=== PATIENT | male | born 1990 | race Caucasian/White ===

== ENCOUNTER 2016-08-12 07:10 | Emergency (ER) | payer BC ==
[2016-08-12] MEDS ORDERED: HYDROmorphone 1 MG INJECTION IV ONE (07:18)
[2016-08-12] MEDS ORDERED: ONDANSETRON HCL 4 MG/2 ML VIAL IV ONE (07:18)
[2016-08-12] MEDS ORDERED: NS 1,000 ML IV ONE (07:18)
[2016-08-12] MEDS ORDERED: ONDANSETRON HCL 4 MG/2 ML VIAL IV PRN (07:18)
[2016-08-12] MEDS ORDERED: HYDROmorphone 1 MG INJECTION IV PRN (07:18)
--- NOTE | 2016-08-12 07:21 | EDPRACDOC ---
- General Information Stated Complaint: SCROTAL PAIN, VOMITING Time Seen by Provider: 08/12/16 07:17 Home Medications: Home Medications Ketorolac Tromethamine 10 mg PO Q6H PRN #20 tab 08/12/16 Allergies/Adverse Reactions: Allergies Allergy/AdvReac Type Severity Reaction Status Date / Time No Known Allergies Allergy Verified 07/06/15 09:55 - History of Present Illness HPI: RIGHT TESTIC PAIN SINCE 0300; NO OTHER SXS. Pain Quality: Reports: Aching ED Past Medical History - History Reviewed Yes Nurses notes reviewed and agree except as marked - Patient Medical History Cardiac History: Reports: Heart Attack Respiratory History: Reports: Asthma - Family Medical History Reports: Cancer (GRANDMOTHER- LUNG). Denies: Hypertension, Diabetes, Stroke, Cardiac Disorders - Social Medical History Smoking Status: Heavy tobacco smoker (5 or more cigarettes/day or daily pipe/ cigar) EDM Review of Systems - Review of Systems ROS Negative Except as Marked: Yes All systems reviewed and were negative except as marked - Physical Exam Constitutional: Alert (Awake), No apparent distress Oriented to: Time, Person, Place Last recorded Vital Signs: Oxygen Pulse Oxygen Saturation O2 Device Oxygen Flow Rate Fraction of Inspired Oxygen ( FIO2) - HEENT Head: Normal ( normocephalic) Eye Exam: Normal (PERRL, EOMI, Sclera white) Oropharynx: Normal (Pharynx:Moist without exudate,Gums-no swelling) ENT EAC: Normal TMJ: Normal Nose: No Symptoms Reported (septum midline) Neck: Normal (FROM, trachea at midline) - Respiratory/Cardiovascular Respiratory: Normal - CTA (BBS clear to auscultation without adventitious sounds ) Cardiovascular: Normal (RRR without murmur, gallop or rub) - GI Auscultation: Normal (NABS) Palpation: Normal (Soft,No rebound or guarding, non distended) Tenderness: Non tender Aparicio's Sign: Negative - Male Genitalia: Bilateral: Normal Scrotum: Bilateral: Tender - Musculoskeletal Back: Normal (Non-Tender) Extremities: Normal (Normal tone, Pulses 2+ No cyanosis or edema, FROM) - Integumentary Skin: Normal, Warm, Dry Lymphatics: Normal (no adenopathy) - Neurologic Memory Impaired: Normal Motor Function: Normal (Normal tone, Pulses 2+ No cyanosis or edema, FROM) Cranial Nerve: Normal (CN II-X11 intact sensation, strength 5/5) Cerebellar: Normal Mood Description: Normal Perception: Normal - Results 08/12/16 07:40 08/12/16 07:40 Decision Time to Discharge: 10:23 - Departure Yes I personally saw and evaluated the patient. Disposition: Home Condition: Good Final Diagnosis: SCROTAL PAIN, URETEROLITHIASIS Instructions: Pelvic Pain in Men (ED) Education/Counseling Given To: Patient, Family Member Education/Counseling Given Regarding: Diagnosis, Treatment, Prognosis Referrals: Rachel Cartagena MD [Primary Care Provider] - One Week Prescriptions: New Ketorolac Tromethamine 10 mg PO Q6H PRN #20 tab PRN Reason: Pain
[2016-08-12 07:29] VITALS: BMI 20.2
[2016-08-12 08:06] LABS: AUTOMATED BASOPHIL 0.5 % (0-2); AUTOMATED EOSINOPHIL 0.7 % (0-5); AUTOMATED LYMPH 20.7 % (17-44); AUTOMATED MONOCYTE 6.5 % (3-10); AUTOMATED NEUTROPHIL 71.6 % (45-76)
[2016-08-12 08:16] LABS: BLOOD UREA NITROGEN 11 MG/DL (9-20); CALCIUM 10.4 MG/DL (8.4-10.2); CALCULATED OSMOLALITY 276 MOs/Kg (270-290); CHLORIDE 104 mEq/L (98-107); GLUCOSE 177 MG/DL (70-99); SODIUM LEVEL 142 mEq/L (137-146); TOTAL PROTEIN 7.9 G/DL (6.3-8.2)
--- NOTE | 2016-08-12 09:04 | DIRPT ---
CLINICAL DATA: Right-sided testicular pain for 1 day EXAM: SCROTAL ULTRASOUND DOPPLER ULTRASOUND OF THE TESTICLES TECHNIQUE: Complete ultrasound examination of the testicles, epididymis, and other scrotal structures was performed. Color and spectral Doppler ultrasound were also utilized to evaluate blood flow to the testicles. COMPARISON: None. FINDINGS: Right testicle Measurements: 3.4 x 2.1 x 4.3 cm.. No mass or microlithiasis visualized. Left testicle Measurements: 4.2 x 2.1 x 3.0 cm.. No mass or microlithiasis visualized. Right epididymis: Normal in size and appearance. Left epididymis: Normal in size and appearance. Hydrocele: Small right hydrocele is noted. Varicocele: None visualized. Pulsed Doppler interrogation of both testes demonstrates normal low resistance arterial and venous waveforms bilaterally. IMPRESSION: Small right hydrocele. No testicular abnormality is noted. Electronically Signed By: Edgardo Rodriguez M.D. On: 08/12/2016 09:02
[2016-08-12 09:37] LABS: LEUKOCYTES/URINE NEG (NEGATIVE); NITRITE/URINE NEG (NEGATIVE); RBC/URINE TNTC (0-2); URINE OCCULT BLOOD 3+ (NEG/TRACE)
--- NOTE | 2016-08-12 10:22 | DIRPT ---
CLINICAL DATA: Nausea and vomiting. Scrotal/groin pain for 1 day. EXAM: CT ABDOMEN AND PELVIS WITHOUT CONTRAST TECHNIQUE: Multidetector CT imaging of the abdomen and pelvis was performed following the standard protocol without IV contrast. COMPARISON: 03/18/2013 FINDINGS: Lower chest: Unremarkable Hepatobiliary: Faint dependent densities in the gallbladder favoring gallstones. Pancreas: Unremarkable Spleen: Unremarkable Adrenals/Urinary Tract: 4 mm nonobstructive right kidney lower pole calculus. Adrenal glands normal. 2 mm right UVJ calculus does not appear to be associated with significant hydronephrosis or hydroureter at this time, but there is some stranding along the right renal pelvis (image 37, series 3) which could reflect inflammation or less likely forniceal rupture. Stomach/Bowel: Unremarkable. Appendix normal. Vascular/Lymphatic: There is a linear calcification near the left distal ureter on image 60 of series 3 but I suspect that this is vascular and not in the ureter. 8 mm in short axis lymph node adjacent to the left adrenal gland, not pathologically enlarged. Reproductive: Unremarkable Other: No supplemental non-categorized findings. Musculoskeletal: 14 degrees of levoconvex lumbar scoliosis between L1 and L5. IMPRESSION: 1. 2 mm right UVJ calculus. Although there is no right hydronephrosis or right hydroureter, there is stranding adjacent to the right collecting system which could reflect recent inflammation or less likely forniceal rupture. 2. There is also a 4 mm nonobstructive right kidney lower pole calculus. 3. Suspected gallstones. 4. 14 degrees of levoconvex lumbar scoliosis. Electronically Signed By: Saul Forrest M.D. On: 08/12/2016 10:19
[2016-08-12 11:04] VITALS: BP 141/79; PULSE 81; TEMP 98.6
== END 2016-08-12 11:03 | disposition home or self-care (01) ==
LOC: ED 07:10
DX: N20.1 Calculus of ureter (principal)
CPT/HCPCS: 36415; 74176; 76870; 80053; 81001; 85025; 93975; 96361; 96374; 96375; 99284; J1170; J2405